=== PATIENT | male | born 1980 | race Caucasian/White ===

== ENCOUNTER 2016-11-11 07:56 | Inpatient (IN) | payer MEDICAID ==
[~2016-11-11] VITALS: Ht 180.3 cm; Wt 85.9 kg
--- NOTE | 2016-11-11 08:39 | NUR ---
DR. TILLMAN AT BEDSIDE FOR MSE.
[2016-11-11 09:11] LABS: CALCIUM 8.9 mg/dL (8.5-10.1); CARBON DIOXIDE 23.8 mmol/L (21-32); CREATININE SERUM 2.2 mg/dL (0.7-1.3); POTASSIUM SERUM 3.4 mmol/L (3.5-5.1)
[2016-11-11 09:15] LABS: BILIRUBIN TOTAL 0.79 mg/dL (0.20-1.00); TOTAL PROTEIN, SERUM 7.6 g/dL (6.4-8.2)
[2016-11-11 09:25] LABS: PLATELET COUNT 260 x10^3mcL (130-400); RED CELL DISTRIBUTION WIDTH 13.3 % (11.5-14.5)
--- NOTE | 2016-11-11 09:38 | NUR ---
PT BACK FROM CT WITHOUT INCIDENCE.
[2016-11-11 09:39] LABS: BAND NEUTROPHIL 22 % (0-10); BASOPHIL 0 % (0-2); MONOCYTE 1 % (0-7); SEGMENTED NEUTROPHILS 73 % (37-75)
[2016-11-11 09:40] LABS: PLATELET MORPHOLOGY PLATELETS NORMAL; rbc morphology (normal/abnorm) ABNORMAL (NORMAL)
--- NOTE | 2016-11-11 09:50 | NUR ---
CLINDAMYCIN 600MG IV COMPLETED TO RIGHT AC IV WITH NO ADVERSE REACTIONS. PT LAYING IN ED GURNEY IN POSITION OF COMFORT, A/O X4, REPORTS FEELING BETTER SINCE ARRIVAL TO ED, RESPS EVEN AND UNLABORED, SKIN WARM/DRY TO TOUCH, NO S/S OF DISTRESS NOTED. COMFORT MEASURES IN PLACE, CALL LIGHT WITHIN REACH.
--- NOTE | 2016-11-11 10:35 | NUR ---
STUDENT AT BEDSIDE FOR EVAL.
--- NOTE | 2016-11-11 10:48 | NUR ---
REPORT CALLED TO CATIA RN, PT TO BE ADMITTED TO TELE ROOM 256B.
--- NOTE | 2016-11-11 11:30 | NUR ---
RECEIVED PT FROM ED, ARRIVED ALONE, AAOx4, LUNG SOUNDS CTA O2 SAT 95% ROOM AIR; AMBULATORY WITH NO APPARENT WEAKNESS OR DIFFICULTIES; 18G TO THE RAC; TELE BOX #[address] WITH OCCASIONAL PVC; PT HAD A BM UPON ARRIVAL TO THE UNIT, HE STATES THAT HE HAS HAD LOOSE STOOL x3 DAYS; HAS EDEMA, REDNESS, AND DRY WOUNDS TO FOZIA HANDS (RIGHT INDEX FINGER AND LEFT THUMB); PHOTOGRAPHS TAKEN AND LEONEL INTO CHART;PT URINATES WITHOUT DIFFICULTY. CALM AND COOPERATIVE WITH STAFF. DR. WILKES SEEN AND ASSESSED PT UPON ARRIVAL TO MED SURG UNIT. CALL LIGHT WITHIN REACH. ENCOURAGED TO CALL FOR ASSISTANCE WHEN NEEDED. WILL CONTINUE TO MONITOR
[2016-11-11 12:23] VITALS: BP 104/65
[2016-11-11 13:04] LABS: MAGNESIUM 2.3 mg/dL (1.8-2.4); PHOSPHOROUS 1.8 mg/dL (2.5-4.9)
[2016-11-11 13:05] LABS: CHOLESTEROL/HDL RATIO 4.3
[2016-11-11 13:15] LABS: FREE T4 1.51 ng/dL (0.76-1.46); FREE THYROXINE INDEX 2.7 ug/dL (1.4-4.5); T4(THYROXINE) 7.6 ug/dL (4.7-13.3)
[2016-11-11 13:50] LABS: T3 TOTAL 0.71 ng/mL
--- NOTE | 2016-11-11 14:42 | NUR ---
PT SITTING UP IN BED EATING. REMINDED TO USE CALL LIGHT WHEN HE URINATES SO THAT WE CAN COLLECT SAMPLE TO SEND TO LAB. PRN MEDICATION GIVEN FOR PAIN IN HAND. IV ABX INFUSING. CALL LIGHT WITHIN REACH. WILL CONTINUE TO MONITOR
[2016-11-11 16:16] LABS: UA SPECIFIC GRAVITY >=1.030 (1.005-1.035); microscopic required? YES; urine erythrocyte 3+ (NEGATIVE)
[2016-11-11 16:24] LABS: AMPHETAMINE QUAL UR POSITIVE (NEG <=1000)
--- NOTE | 2016-11-11 16:31 | NUR ---
PT TEMP 103.1 WITH HR OF 124. DR. WILKES AWARE, WHO WILL ORDER A 1L BOLUS. COOLING MEASURES STARTED. WILL CONTINUE TO MONITOR
[2016-11-11 17:12] VITALS: BP 99/52
--- NOTE | 2016-11-11 18:52 | NUR ---
PT RESTING IN BED EYES CLOSED. NO APPARENT SIGNS OF ACUTE DISTRESS NOTED AT THIS TIME. IV INFUSING WELL. CALL LIGHT WITHIN REACH. WILL CONTINUE TO MONITOR
--- NOTE | 2016-11-11 19:09 | NUR ---
PT TEMP WAS 104. COOLING MEASURE INITIATED. ICE PACK TO UNDERARMS, BEHIND NECK AND BETWEEN LEGS, COOL WASH CLOTH TO FORHEAD. TYLENOL GIVEN. DR. WANG WAS NOTIFIED AND AWARE. WILLL ENDORSE TO NEXT SHIFT TO KEEP HER UP TO DATE. WILL CONTINUE TO MONITOR
--- NOTE | 2016-11-11 19:10 | NUR ---
AAO X 4. SPEECH CLEAR AND APPROPRIATE. BREATHING EVEN AND UNLABORED ON ROOM AIR. LUNG SOUNDS CLEAR. HOB ELEVATED 30 DEG. UPPER SIDE RAILS IN RAISED POSITION. SINUS TACHYCARDIC ON TELE, HR 125/MIN. RECEIVED TYLENOL PO FROM DAY SHIFT NURSE AT 1906H FOR FEVER. IVF OF NS AT 120ML/HR.
[2016-11-11 21:19] VITALS: BP 95/51
--- NOTE | 2016-11-11 21:31 | NUR ---
TEMP 101.3F. COOLING MEASURES IN PLACE.
[2016-11-11 22:25] VITALS: BP 101/55
--- NOTE | 2016-11-11 22:39 | NUR ---
TEMP 99.7. INSTRUCTED NO EATING OR DRINKING AFTER MIDNIGHT FOR US ABDOMEN IN AM
--- NOTE | 2016-11-11 23:41 | NUR ---
EYES CLOSED, BREATHING EVEN AND UNLABORED ON ROOM AIR. HOB KEPT ELEVATED 30 DEG. UPPER SIDE RAILS KEPT RAISED, BED IN LOWEST POSITION. CALL LIGHT WITHIN EASY REACH. HEART RATE 101/MIN. NO MOANING OR GRIMACING NOTED.
--- NOTE | 2016-11-12 04:15 | NUR ---
BP 92/45, W[place] 112. INFORMED DR. GOLD VIA [place].
--- NOTE | 2016-11-12 04:17 | NUR ---
VOIDED 600ML TEA COLORED URINE.
--- NOTE | 2016-11-12 04:58 | NUR ---
REMINDED NO EATING OR DRINKING UNTIL US OF ABDOMEN DONE. AMBULATED TO RESTROOM.
[2016-11-12 05:14] VITALS: BP 100/51
--- NOTE | 2016-11-12 06:05 | NUR ---
AMBULATED TO RESTROOM, STATED PASSED STOOL. KEPT HANDS ELEVATED ON PILLOWS. IVF OF NS AT 120ML/HR. BREATHING EVEN AND UNLABORED. AFEBRILE.
--- NOTE | 2016-11-12 07:20 | NUR ---
AAO X4.DENIES ANY PAIN/DISCOMFORT AT THE MOMENT.LUNGS CLEAR.ON SR/ST ON THE MONITOR.IVF NS GOING AT 120 ML/HR INFUSING WELL.BUE WITH REDNESS AND CELLULITIS.ELEVATED BUE WITH PILLOW.CALL LIGHT WITHIN REACH.INSTRUCTED TO CALL FOR ANY PAIN/DISCOMFORT.WILL CONTINUE TO MONITOR PT.
--- NOTE | 2016-11-12 07:21 | NUR ---
US ABD DONE. AAO X 4. BREATHING EVEN AND UNLABORED. ENDORSED TO NURSE ESTHER
--- NOTE | 2016-11-12 08:30 | NUR ---
AND MEDICINE TEAM AT BEDSIDE.INFORMED PT ABOUT THE PLAN OF CARE.CONSULTED THE ORTHO DOCTOR ABOUT HIS SWELLING ON BILAT HANDS.
[2016-11-12 10:16] VITALS: BP 91/45
[2016-11-12 10:53] LABS: PLATELET COUNT 198 x10^3mcL (130-400); RED CELL DISTRIBUTION WIDTH 13.4 % (11.5-14.5)
[2016-11-12 11:40] LABS: BAND NEUTROPHIL 25 % (0-10); MONOCYTE 3 % (0-7); SEGMENTED NEUTROPHILS 58 % (37-75)
[2016-11-12 11:42] LABS: rbc morphology (normal/abnorm) NORMAL (NORMAL)
[2016-11-12 11:46] LABS: PLATELET MORPHOLOGY PLATELETS NORMAL
[2016-11-12 13:06] LABS: CALCIUM 7.6 mg/dL (8.5-10.1); CARBON DIOXIDE 26.5 mmol/L (21-32); CREATININE SERUM 1.6 mg/dL (0.7-1.3); MAGNESIUM 2.1 mg/dL (1.8-2.4); PHOSPHOROUS 1.9 mg/dL (2.5-4.9); POTASSIUM SERUM 3.3 mmol/L (3.5-5.1)
--- NOTE | 2016-11-12 14:54 | NUR ---
DEBRIDEMENT STARTED AT BEDSIDE BY .
--- NOTE | 2016-11-12 15:46 | NUR ---
C/O NAUSEA, MEDICATED ORDERED. DR. BOYD IN WITH PATIENT.
[2016-11-12 18:00] VITALS: BP 113/56
--- NOTE | 2016-11-12 18:28 | NUR ---
NO SIGNIFICANT CHANGE NOTED.WILL ENDORSE TO NEXT SHIFT.
--- NOTE | 2016-11-12 20:14 | NUR ---
PT IS AAO X4. PT IS A MED/SURG PT. 120 ML/HR NS RUNNING IN RAC. BOWEL SOUNDS ACTIVE. LUNG SOUNDS CTA ON RA. BED IS IN LOWEST POSITION WITH CALL LIGHT WITHIN REACH. WILL CONTINUE TO MONITOR.
[2016-11-12 21:42] VITALS: BP 122/73
--- NOTE | 2016-11-13 00:42 | NUR ---
PT'S RIGHT INDEX FINGER DRESSING FELL OFF. REBANDAGED AND TAPED.
--- NOTE | 2016-11-13 04:20 | NUR ---
RAC IV LEAKING. INSERTED IV INTO LAC. 22G RUNNING WELL. WILL CONTINUE TO ASSESS.
[2016-11-13 06:10] LABS: BASOPHIL % 0.1 % (0-2); PLATELET COUNT 205 x10^3mcL (130-400); RED CELL DISTRIBUTION WIDTH 13.9 % (11.5-14.5)
[2016-11-13 06:26] VITALS: BP 98/57
[2016-11-13 06:41] LABS: CALCIUM 7.9 mg/dL (8.5-10.1); CARBON DIOXIDE 25.9 mmol/L (21-32); CHLORIDE SERUM 103 mmol/L (98-107); CREATININE SERUM 1.2 mg/dL (0.7-1.3); GFR1 > 60 mL/min; GLUCOSE SERUM 126 mg/dL (74-106); PHOSPHOROUS 2.3 mg/dL (2.5-4.9); POTASSIUM SERUM 3.1 mmol/L (3.5-5.1); SODIUM SERUM 136 mmol/L (136-145)
--- NOTE | 2016-11-13 07:07 | NUR ---
NURSING CO-SIGN THE DOCUMENTATION ENTERED BY THE RN HAS BEEN REVIEWED. REVIEWED/CO-SIGNED BY: Glo Ga DOCUMENTATION DONE BY: VANESSA PERSON
--- NOTE | 2016-11-13 07:25 | NUR ---
AAO X4.PT CLAIMS TO BE COMFORTABLE AT THE MOMENT.LUNGS CLEAR.PT NON-TELE.IVF NS GOING AT 120 ML/HR INFUSING WELL.BUE WITH DRESSING CDI.CALL LIGHT WITHIN REACH. INSTRUCTED TO CALL FOR ANY PAIN/DISCOMFORT.WILL CONTINUE TO MONITOR.
--- NOTE | 2016-11-13 08:30 | NUR ---
AND MEDICINE TEAM AT BEDSIDE.INFORMED PT ABOUT THE PLAN OF CARE.WILL STAY ONE MORE DAY FOR ANTIBIOTICS.
--- NOTE | 2016-11-13 09:30 | NUR ---
CAME TO CHANGE DRESSING ON BUE.
[2016-11-13 10:10] VITALS: BP 108/61
--- NOTE | 2016-11-13 10:19 | NUR ---
ECHOCARDIOGRAM COMPLETED
--- NOTE | 2016-11-13 15:20 | NUR ---
Initial Nutrition Assessment 256-B DAMIEN LAWTON 36 Y/O M Dx: Cellulitis to Hands PMHx: IV drug use, pyloric stenosis at young age, perforated ulcer (2008) PSHx: PUD repair (a few years ago) Labs: K 3.1 L, BG 126 H, BUN 20 H, Phosphorous 2.3 L, H/H 10.4/31 L; (11/11) ALB 3 L, AST 110 H, ALT 85 H, A1C 5.3 Meds: Colace, KCl NS IV, lactinex, protonix, NS IV, zofran Current Diet Order: Regular PO Intakes: (11/13) B: 80% Ht: 71", 5' 11". Wt: 189 lb, 86 kg. BMI: 26.4 kg/m2 (Overweight) IBW: 175 lb, 78 kg. %IBW: 110%. UBW: Unable to obtain Age: 36 Y/O M Food Allergies: None Skin: BUE with redness, cellulitis, s/p debridement. Cr 21. Note no boatswains mate note in chart. Edema: None GI: Active bowel sounds. Last BM 11/12. Nursing Trigger: Nausea, Vomiting, Diarrhea >3 days. Pt found with bilateral cellulitis of hands with possible L thumb flexor tenosynovitis per doctor's notes. 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 Pt was seen resting in bed, appears to be annoyed, reported good appetite, declined further RD interview questions due to wanting to sleep. RD acknowledged. RD to obtain food preferences at F/U visit. Estimated Nutritional Needs Based CBW 189 lb, 86 kg Energy: 4151-0895 kcal/day (25-30 kcal/kg for Maintenance) Protein: 86-103 gm/day (1-1.2 gm/kg for Wound Healing) Fluids: 2580 ml/day (30 ml/kg for Maintenance) or per doctor Nutrition Diagnosis Increase protein needs related to altered skin integrity as evidenced by cellulitis to hands, s/p I&D debridement Intervention 1. Continue Regular diet per doctor. 2. Recommend Theragran daily. Monitor/Evaluate Goal: PO intakes to meet >80% of estimated needs with tolerance Monitor: PO intakes, tolerance to diet, labs, skin integrity, GI function, weights F/U in 7 days as LOW risk (11/20)
--- NOTE | 2016-11-13 15:20 | NUR ---
1. Continue Regular diet per doctor. 2. Recommend Theragran daily.
[2016-11-13 17:54] VITALS: BP 106/67
--- NOTE | 2016-11-13 18:19 | NUR ---
NO SIGNIFICANT CHANGE NOTED.WILL ENDORSE TO NEXT SHIFT.
--- NOTE | 2016-11-13 19:30 | NUR ---
PT IS AAOX4. CTA ON RA. BOWEL SOUNDS ACTIVE. NO DISTRESS NOTED. PT WISHES TO TAKE A SHOWER, SO ASSISTED IN COVERING UP BANDAGES SO HE COULD DO SO. PT CURRENTLY IN SHOWER, WILL CONTINUE TO MONITOR.
[2016-11-13 21:00] VITALS: BP 129/88
--- NOTE | 2016-11-13 21:40 | NUR ---
CHANGED DRESSING, APPLIED BACTROBAN. PT OLERATED PROCEDURE WELL.
--- NOTE | 2016-11-14 03:34 | NUR ---
PT IS SLEEPING IN BED WITH NO SIGNS OF ACUTE DISTRESS NOTED. BED IN LOWEST POSITION AND CALL LIGHT WITHIN REACH. WILL CONTINUE TO MONITOR.
--- NOTE | 2016-11-14 05:52 | NUR ---
PT IS SLEEPING COMFORTABLY IN BED. ALL NEEDS HAVE BEEN MET. NO ACUTE DISTRESS NOTED. CALL LIGHT WITHIN REACH. WILL ENDORSE TO MORNING SHIFT.
[2016-11-14 06:12] LABS: BASOPHIL % 0.5 % (0-2); PLATELET COUNT 251 x10^3mcL (130-400)
[2016-11-14 06:43] LABS: CALCIUM 7.9 mg/dL (8.5-10.1); CARBON DIOXIDE 28.2 mmol/L (21-32); CHLORIDE SERUM 108 mmol/L (98-107); GFR1 > 60 mL/min; GLUCOSE SERUM 96 mg/dL (74-106); MAGNESIUM 1.7 mg/dL (1.8-2.4); PHOSPHOROUS 3.1 mg/dL (2.5-4.9); POTASSIUM SERUM 3.9 mmol/L (3.5-5.1); SODIUM SERUM 144 mmol/L (136-145)
[2016-11-14 07:00] VITALS: BP 116/65
--- NOTE | 2016-11-14 07:30 | NUR ---
PATIENT IS IN BED APPEARS TO BE SLEEPING AROUSED EASILY TO NAME. ALERT AND ORIENTED. DRESSING OFF RIGHT HAND FINGER AND FALLING OFF LEFT HAND. TREATMENT TO RT HAND FINGER AND LEFT HAND DONE ORDERED. IVF INFUSING WELL AT THIS TIME, SITE LEFT A/C. PATIENT VOIDING WELL USING URINAL PRN. LUNGS CLEAR ON ROOM AIR. ABD SOFT BOWEL SOUNDS ACTIVE LBM THIS AM PER PATIENT. AMBULATES AD PAPITO. SMALL DRY PINK AREA NOTED ON THE TIP OF PATIENT'S NOSE, NOT OPEN AND PER PATIENT HE IS APPLYING CREAM TO IT. WILL CONTINUE TO MONITOR.
--- NOTE | 2016-11-14 08:30 | NUR ---
DR ORTEGA AND MEDICAL TEAM INTO SEE PATIENT AND DISCUSS PLAN OF CARE.
--- NOTE | 2016-11-14 09:24 | NUR ---
PATIENT'S PLAN OF CARE WAS DISCUSSED AND REVIEWED WITH FIELD ADJUSTER:olaf kim
--- NOTE | 2016-11-14 15:59 | NUR ---
PATIENT IS IN BED APPEARS TO BE SLEEPING. AROUSED EASILY TO NAME. DENIES ANY PAIN OR DISCOMFORT AT THIS TIME. BANDAGES ON BOTH HANDS REMAIN C/D/I. PATIENT CONTINUES TO REMOVE HANDS OFF PILLOWS, PATIENT REMINDED ON THE NEED TO ELEVATE THEM. NO ACUTE DISTRESS NOTED. WILL CONTINUE TO MONITOR.
[2016-11-14 16:10] VITALS: BP 120/80
--- NOTE | 2016-11-14 17:24 | NUR ---
PATIENT IS IN BED, C/O 8/10 ON THE PAIN SCALE OF BILAT HAND PAIN. MEDICATED WITH NORCO PO ORDERED. WILL CONTINUE TO MONITOR.
--- NOTE | 2016-11-14 18:23 | NUR ---
PATIENT IS IN BED APPEARS TO BE RESTING WELL. APPETITE HAS BEEN GOOD. MEDICATED FOR HAND PAIN PRN ORDERED WITH NORCO. DRESSING ON HANDS REMAIN C/D/I. DRY PINK AREA ON TIP OF THE NOSE REMAINS NOTED. PATIENT APPLIED VASELINE CREAM TO NOSE. NO ACUTE DISTRESS NOTED.
--- NOTE | 2016-11-14 19:11 | NUR ---
I HAVE REVIEWED THE DATA COLLECTION BY JHONY (NAME):EFREN SHAW ENTERED ON (DATE/TIME):11/14 FROM 7A-7P I CONCUR WITH THE DATA AND ANY EXCEPTIONS OR COMMENTS ARE LISTED BELOW:
--- NOTE | 2016-11-14 19:27 | NUR ---
RECEIVED PT FROM PREVIOUS SHIFT. PT A/OX4. DENIES CHEST PAIN, DENIES SOB ON RA. IV PATENT AND INFUSING NS AT 10ML/HR TO LAC WITH NO S/S OF INFILTRATION. DRESSING TO BILATERAL HANDS CDI AND ELEVATED ON PILLOW. SCAB TO NOSE GELY. CALL LIGHT WITHIN REACH, BED IN LOW POSITION. WILL CONITNUE TO MONITOR.
--- NOTE | 2016-11-14 21:01 | NUR ---
DRESSING CHANGE PROVIDED AT THIS TIME PER WOUND CARE ORDERS. PT TOLERATED WELL. NEW DRESSING CDI. WILL CONTINUE TO MONITOR.
[2016-11-14 22:28] VITALS: BP 134/80
--- NOTE | 2016-11-15 02:39 | NUR ---
PT RESTING AT THIS TIME IN NO ACUTE DISTRESS. RR EVEN AND UNLABORED. IV PATENT. CALL LIGHT WITHIN REACH AND BED IN LOW POSITION. WILL CONTINUE TO MONITOR
[2016-11-15 06:22] LABS: BASOPHIL % 0.5 % (0-2); PLATELET COUNT 322 x10^3mcL (130-400); RED CELL DISTRIBUTION WIDTH 14.4 % (11.5-14.5)
[2016-11-15 06:24] VITALS: BP 124/72
[2016-11-15 06:35] LABS: MAGNESIUM 1.6 mg/dL (1.8-2.4)
--- NOTE | 2016-11-15 07:15 | NUR ---
RECEIVED Pt. AAOX4. RESPIRATIONS EVEN AND UNLABORED. DENIES PAIN/DISCOMFORT. NO DISTRESS NOTED. DSG IN PLACE AT RIGHT 2ND DIGIT AND LEFT 1ST DIGIT CDI, Pt. INSTRUCTED TO KEEP BILATERAL HANDS ELEVATED WITH PILLOWS AND Pt. VERBALIZED UNDERSTANDING. IVF RUNNING TO IV AT LEFT AC PATENT AND INTACT. BED LOW/LOCKED. CALL LIGHT IN REACH.
--- NOTE | 2016-11-15 08:15 | NUR ---
MADE ROUNDS WITH DR. ORTEGA AND MEDICINE TEAM, CONTINUE TO ARRANGE PLACEMENT AND POSSIBLE DISCHARGE TODAY AND AGREED WITH PLAN OF CARE.
[2016-11-15 10:00] VITALS: BP 145/90
--- NOTE | 2016-11-15 11:00 | NUR ---
PICTURES TAKEN AND WOUND CARE PROVIDED TO OPEN AREA TO RIGHT INDEX FINGER, LEFT PALM AND LEFT THUMB AND Pt. TOLERATED PROCEDURE WELL. WOUND CARE INSTRUCTIONS GIVEN AND Pt. VERBALIZED UNDERSTANDING. WOUND CARE SUPPLIES ALSO PROVIDED.
--- NOTE | 2016-11-15 12:02 | NUR ---
Pt. C/O BILATERAL HAND PAIN 8/10 SCALE, NORCO 10/325 GIVEN PER EMAR, WILL CONTINUE TO MONITOR.
--- NOTE | 2016-11-15 14:00 | NUR ---
Pt. VERBALIZED SOME RELIEF POST NORCO 08/31 AT THIS TIME.
[2016-11-15] MEDS ORDERED: CLINDAMYCIN HC300 MG PO (14:32)
[2016-11-15] MEDS ORDERED: LAC PO (14:33)
[2016-11-15] MEDS ORDERED: IBUPROFEN800 MG PO (14:36)
[2016-11-15 15:32] VITALS: BP 145/90
--- NOTE | 2016-11-15 16:30 | NUR ---
Pt. AAOX4. RESPIRATIONS EVEN AND UNLABORED. DENIES PAIN/DISCOMFORT AT THIS TIME. NO DISTRESS NOTED ALL RX, DISCHARGE AND WOUND CARE INSTRUCTIONS GIVEN TO Pt. AND VERBALIZED UNDERSTANDING. Pt. ALSO INSTRUCTED TO GO TO FOLLOW UP APPOINTMENT WITH [facility], Pt. VERBALIZED UNDERSTANDING. DSG BILATERAL HANDS CDI. WOUND CARE SUPPLIES PROVIDED. IV AT LEFT AC REMOVED WITH CATH INTACT. Pt. REPORTED GOING TO [facility]RI[facility]DS HOU[facility] POST DISCARGE AND LEFT WITH ALL BELONGINGS.
== END 2016-11-15 16:50 | disposition home or self-care (01) | DRG 710 ==
LOC: ED 07:56 → MU 10:25 → DU 10:25 → MU 11-12 09:51
PROVIDERS: Emergency Medicine; Family Medicine; ADMIT Family Medicine
PROC: 0JBJ0ZZ Excision of Right Hand Subcutaneous Tissue and Fascia, Open Approach (ICD-10-PCS; principal; 2016-11-12)
PROC: 0HBGXZZ Excision of Left Hand Skin, External Approach (ICD-10-PCS; principal; 2016-11-12)
DX: A41.9 Sepsis, unspecified organism (principal); N17.0 Acute kidney failure with tubular necrosis; E43 Unspecified severe protein-calorie malnutrition; E87.1 Hypo-osmolality and hyponatremia; E83.39 Other disorders of phosphorus metabolism; E83.42 Hypomagnesemia; I08.1 Rheumatic disorders of both mitral and tricuspid valves; R65.20 Severe sepsis without septic shock; L03.114 Cellulitis of left upper limb; L03.113 Cellulitis of right upper limb; B95.62 Methicillin resistant Staphylococcus aureus infection as the cause of diseases classified elsewhere; E87.6 Hypokalemia; E78.5 Hyperlipidemia, unspecified; D64.9 Anemia, unspecified; F15.129 Other stimulant abuse with intoxication, unspecified; F12.10 Cannabis abuse, uncomplicated; F10.10 Alcohol abuse, uncomplicated; Z68.26 Body mass index [BMI] 26.0-26.9, adult; Z87.11 Personal history of peptic ulcer disease
CPT/HCPCS: 80307; 83880; 84439; 90715; C9113; G0480; J0696; J1885; J1956; J2001; J2270; J2405; J2543; J3480; J3490; J7030; Q0092

== ENCOUNTER 2016-12-07 08:54 | Emergency (ER) | payer MEDICAID ==
[~2016-12-07] VITALS: Ht 180.3 cm; Wt 83.0 kg
[~2016-12-07 08:54] MED LIST: CLINDAMYCIN HC300 MG PO; IBUPROFEN800 MG PO; LAC PO
[2016-12-07 08:59] VITALS: BP 156/83
== END 2016-12-07 09:38 | disposition home or self-care (01) ==
LOC: ED 08:54
DX: A49.02 Methicillin resistant Staphylococcus aureus infection, unspecified site (principal)

== ENCOUNTER 2017-02-28 13:20 | Emergency (ER) | payer OTHER ==
[~2017-02-28] VITALS: Ht 180.3 cm; Wt 74.8 kg
[2017-02-28 14:20] VITALS: BP 129/78
[2017-02-28 14:36] LABS: UA SPECIFIC GRAVITY >=1.030 (1.005-1.035); microscopic required? YES; urine erythrocyte 2+ (NEGATIVE)
== END 2017-02-28 14:20 | disposition home or self-care (01) ==
LOC: ED 13:20
PROVIDERS: Emergency Medicine
DX: N34.2 Other urethritis (principal)
CPT/HCPCS: 87491; 87591; J0696

== ENCOUNTER 2017-05-10 06:45 | Emergency (ER) | payer OTHER ==
[2017-05-10 07:30] VITALS: BP 153/98
== END 2017-05-10 07:30 | disposition home or self-care (01) ==
LOC: ED 06:45
DX: K08.89 Other specified disorders of teeth and supporting structures (principal)

== ENCOUNTER 2017-05-14 08:42 | Emergency (ER) | payer OTHER ==
[2017-05-14 09:45] LABS: BASOPHIL % 0.4 % (0-2); PLATELET COUNT 340 x10^3mcL (130-400)
[2017-05-14 09:49] LABS: CALCIUM 8.8 mg/dL (8.5-10.1); CARBON DIOXIDE 26.6 mmol/L (21-32); CHLORIDE SERUM 101 mmol/L (98-107); GFR1 > 60 mL/min; GLUCOSE SERUM 91 mg/dL (74-106); POTASSIUM SERUM 3.5 mmol/L (3.5-5.1); SODIUM SERUM 135 mmol/L (136-145)
[2017-05-14 09:54] LABS: ALKALINE PHOSPHATASE 112 U/L (46-116); ALT/SGPT 45 U/L (16-63); AST/SGOT 25 U/L (15-37); BILIRUBIN TOTAL 0.3 mg/dL (0.20-1.00); TOTAL PROTEIN, SERUM 6.4 g/dL (6.4-8.2)
[2017-05-14 10:00] LABS: ALBUMIN 2.3 g/dL (3.4-5.0)
[2017-05-14 11:53] LABS: AMPHETAMINE QUAL UR POSITIVE (NEG <=1000)
[2017-05-14 13:02] VITALS: BP 179/98
== END 2017-05-14 12:40 | disposition short-term general hospital (02) ==
LOC: ED 08:42
PROVIDERS: Emergency Medicine
DX: K12.2 Cellulitis and abscess of mouth (principal)
CPT/HCPCS: 83880; J2405; J2543; J3010; Q9967

== ENCOUNTER 2017-08-12 20:52 | Emergency (ER) | payer OTHER ==
[~2017-08-12] VITALS: Ht 180.3 cm; Wt 77.1 kg
[2017-08-12 21:01] VITALS: Ht 180.3 cm; Wt 77.1 kg
[2017-08-12 21:49] VITALS: BP 124/84
== END 2017-08-12 21:49 | disposition other institution (70) ==
LOC: ED 20:52
DX: Z02.89 Encounter for other administrative examinations (principal)

== ENCOUNTER 2017-11-10 09:29 | Emergency (ER) | payer OTHER ==
[~2017-11-10] VITALS: Ht 182.9 cm; Wt 81.6 kg
[2017-11-10 09:37] VITALS: Ht 182.9 cm; Wt 81.6 kg
[2017-11-10 10:40] VITALS: BP 137/98
[2017-11-12 12:44] LABS: RAPID PLASMA REAGIN Non Reactive (Non Reactive)
== END 2017-11-10 11:10 | disposition home or self-care (01) ==
LOC: ED 09:29
PROVIDERS: Specialist
DX: R30.0 Dysuria (principal)
CPT/HCPCS: 87491; 87591; J0696; J2001

== ENCOUNTER 2018-08-14 03:14 | Inpatient (IN) | payer OTHER ==
[~2018-08-14] VITALS: Ht 182.9 cm; Wt 79.1 kg
[2018-08-14 03:20] VITALS: Ht 182.9 cm; Wt 79.1 kg
[2018-08-14 04:02] LABS: BASOPHIL % 0.2 % (0-2); PLATELET COUNT 283 x10^3mcL (130-400); RED CELL DISTRIBUTION WIDTH 14.3 % (11.5-14.5)
[2018-08-14 04:21] LABS: CHLORIDE SERUM 100 mmol/L (98-107); CREATININE SERUM 0.7 mg/dL (0.7-1.3); GFR1 > 60 mL/min; GLUCOSE SERUM 124 mg/dL (74-106); SODIUM SERUM 135 mmol/L (136-145)
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
[2018-08-14 04:39] LABS: ALKALINE PHOSPHATASE 81 U/L (46-116); ALT/SGPT 93 U/L (16-63); AST/SGOT 313 U/L (15-37); BILIRUBIN TOTAL 0.7 mg/dL (0.20-1.00); FREE T4 1.37 ng/dL (0.76-1.46); LIPASE 81 IU/L (73-393); TOTAL PROTEIN, SERUM 6.9 g/dL (6.4-8.2)
[2018-08-14 04:42] LABS: ALBUMIN 3.3 g/dL (3.4-5.0)
[2018-08-14 06:15] LABS: MAGNESIUM 1.9 mg/dL (1.8-2.4)
--- NOTE | 2018-08-14 06:15 | NUR ---
PT ARRIVED TO FLOOR VIA [facility] ACCOMPANIED BY RN AND TRANSPORT. PT APPEARED TO BE IN STABLE CONDITION AND AMBULATED FROM [facility] TO BED, STEADY GAIT. PT IS A/O X3, DENIES LAWLER, DIZZINESS AT THIS TIME, FEVER NOTED. PT DENIES PAIN AT THIS TIME. VITALS: BP, 99/55, MAP 78, HR 112 T 100.6 , O2 96% ON RA AND RR 18. TELE MONITOR #13 PLACED, SHOWING ST; PT DENIES CHEST PAIN OR SOB AT THIS TIME. MULTIPLE SCRATCHES AND ABRASIONS NOTED TO BLE AND BUE. IV X2 TO LUE, LAC AND LFA. ALL SAFETY MEASURES MAINTAINED. CALL LIGHT AND PERSONAL ITEMS IN REACH. WILL ENDORSE CARE TO AM NURSE.
[2018-08-14 06:16] LABS: CHOLESTEROL/HDL RATIO 1.9
--- NOTE | 2018-08-14 07:40 | NUR ---
RECEIVED PATIENT RESTING IN BED COMFORTABLY A/O X4, CLEAR SPEECH, NO NEURO DEFICITS NOTED. TELE # [address], DENIES CHEST PAIN. BREATHING EVEN UNLABBROED ON RA, DENIES SOB, NO DISTRESS NOTED. PATIENT CAME IN FOR RT HAND CELLULITITES, RT HAND NOTED WITH REDNESS AND SWELLING AND MULTIPLE DRY SCATTERED SCABS/ABRASIONS TO BUE/BLE, COMBINATION SAW OPERATOR. IV TO LAC AND LFA INTACT AND PATENT FREE FROM REDNESS AND INFILTRATION. PATIENT IS CALM WITH CARE. INSTRUCTED TO CALL FOR ASSISTANCE IF NEEDED. SAFETY PRECAUTIONS IN PLACE, CALL LIGHT WITHIN REACH BED IN LOW POSITION.
[2018-08-14 09:28] VITALS: BP 99/58
[2018-08-14 10:02] VITALS: BP 92/44
[2018-08-14 10:35] VITALS: BP 105/57
--- NOTE | 2018-08-14 10:35 | NUR ---
SCOTTY HAIR ASSISTANT AT BEDSIDE TO SPEAK WITH AND ASSESS PATIENT. POC REVIEWED: PATIENT WILL BE GIVEN ABX FOR HIS CELLULITIS TO HIS HAND, NO FRACTURE. PATIENT INSTRUCTED TO PROVIDE URINE SAMPLE TO R/O INFECTION. PATIENT VERBALIZED UNDERSTANDING. ALL QUESTIONS AND CONCERNS ADDRESSED.
--- NOTE | 2018-08-14 10:50 | NUR ---
PATIENT C/O GENERALIZED BODY ACHES 01/31, MEDICATED WITH NORCO PO (SEE eMAR). PATIENT ALSO GIVEN INFLUENZA VACCINE TO LEFT ARM, TOLERATED WELL, NO ADVERSE REACTION NOTED. ALL NEEDS ATTENDED TO. SAFETY PRECAUTIONS IN PLACE.
--- NOTE | 2018-08-14 12:33 | NUR ---
PATIENT SEEN RESTING IN BED COMFORTABLY WITH EYES CLOSED, BREATHING EVEN UNLABBORED ON RA, NO DISTRESS NOTED. SAFETY PRECAUTIONS IN PLACE. WILL MONITOR.
[2018-08-14 14:22] LABS: UA SPECIFIC GRAVITY 1.025 (1.005-1.035); microscopic required? YES; urine erythrocyte 2+ (NEGATIVE)
--- NOTE | 2018-08-14 14:25 | NUR ---
PATIENT C/O BODY ACHES AND HEADACHE 08/31, MEDICATED WITH TYLENOL 650 MG PO (SEE eMAR). PATIENT REFUSED LIBRIUM PO, PATIENT INFORMED OF REASON FOR MEDICATION BUT STILL REFUSED. WILL CALL AND NOTIFY SCOTTY NON CATEGORICAL PRESCHOOL TEACHER. ALL NEEDS ATTENDED TO. SAFETY PRECAUTIONS IN PLACE.
[2018-08-14 14:33] LABS: AMPHETAMINE QUAL UR POSITIVE (See below)
--- NOTE | 2018-08-14 14:45 | NUR ---
AT [phone]: CALLED SCOTTY NIEVES AND INFORMED HER PATIENT REFUSED LIBRIUM PO (SEE eMAR) AND THAT PATIENT IS REQUESTING TO SPEAK WITH HER. TRANSFERED PHONE CALL TO PATIENTS ROOM, PATIENT SPOKE WITH SCOTTY BOTTLE WASHER MACHINE ALL QUESTIONS AND CONCERNS ADDRESED. PATIENT INFORMED SCOTTY HE IS NOT GOING TO STAY OVER NIGHT, PATIENT VERBALIZED UNDERSTANDING REGARDING RISKS OF LEAVING AGAINST MEDICAL ADVICE. PATIENT WILL NOTIFY STAFF WHEN HE WILL BE LEAVING. ALL QUESTIONS AND CONCERNS ADDRESSED. SAFETY PRECAUTIONS IN PLACE.
[2018-08-14 14:53] VITALS: BP 105/64
--- NOTE | 2018-08-14 17:12 | NUR ---
AT 1645: PATIENT SIGNED AGAINST MEDICAL ADVICE FORM, STATED DOES NOT WANT TO STAY OVER NIGHT. SPOKE WITH SCOTTY WHOLESALE DIAMOND BROKER AND IS AWARE OF RISKS OF LEAVING AMA. TELE MONITOR REMOVED, ID BANDS REMOVED, IV TO LAC AND LFA REMOVED CATH INTACT. AT 1712: PATIENT IN STABLE CONDITION, ASSISTED DOWN TO LOBBY ACCOMPANIED BY NURSE AID. ALL PERSONAL BELONGINGS SENT HOME WITH PATIENT AT THIS TIME.
== END 2018-08-14 17:12 | disposition left against medical advice (07) | DRG 720 ==
LOC: ED 03:14 → DU 05:03
PROVIDERS: Emergency Medicine; ADMIT Internal Medicine
DX: A41.9 Sepsis, unspecified organism (principal); M62.82 Rhabdomyolysis; E44.0 Moderate protein-calorie malnutrition; F10.129 Alcohol abuse with intoxication, unspecified; D50.9 Iron deficiency anemia, unspecified; E86.0 Dehydration; F15.10 Other stimulant abuse, uncomplicated; L03.113 Cellulitis of right upper limb; T43.625A Adverse effect of amphetamines, initial encounter; Z53.21 Procedure and treatment not carried out due to patient leaving prior to being seen by health care provider; N39.0 Urinary tract infection, site not specified; Y90.0 Blood alcohol level of less than 20 mg/100 ml; R74.0 Nonspecific elevation of levels of transaminase and lactic acid dehydrogenase [LDH]; Z79.1 Long term (current) use of non-steroidal anti-inflammatories (NSAID); Y92.098 Other place in other non-institutional residence as the place of occurrence of the external cause; Z72.89 Other problems related to lifestyle; Z68.22 Body mass index [BMI] 22.0-22.9, adult; Z23 Encounter for immunization
CPT/HCPCS: 84439; 87804; 90658; 90715; G0480; J0295; J1885; J2543; J3010; J3370; J7030; Q0092

== ENCOUNTER 2018-08-16 19:52 | Emergency (ER) | payer OTHER ==
[~2018-08-16] VITALS: Ht 182.9 cm; Wt 79.4 kg
[2018-08-16 20:28] VITALS: BP 113/69
== END 2018-08-16 23:56 | disposition home or self-care (01) ==
LOC: ED 19:52
DX: L03.114 Cellulitis of left upper limb (principal); L03.113 Cellulitis of right upper limb

== ENCOUNTER 2018-08-21 07:02 | Emergency (ER) | payer OTHER ==
[~2018-08-21] VITALS: Ht 182.9 cm; Wt 79.8 kg
[2018-08-21 07:12] VITALS: BP 122/84
== END 2018-08-21 07:32 | disposition home or self-care (01) ==
LOC: ED 07:02
DX: L03.011 Cellulitis of right finger (principal); Z76.0 Encounter for issue of repeat prescription; Z00.00 Encounter for general adult medical examination without abnormal findings

== ENCOUNTER 2018-09-06 13:07 | Inpatient (IN) | payer OTHER ==
[~2018-09-06] VITALS: Ht 182.9 cm; Wt 71.2 kg
[2018-09-06 18:36] LABS: BASOPHIL % 0.6 % (0-2)
[2018-09-06 18:42] LABS: CALCIUM 8.7 mg/dL (8.5-10.1); CARBON DIOXIDE 29.9 mmol/L (21-32); CHLORIDE SERUM 101 mmol/L (98-107); CREATININE SERUM 0.7 mg/dL (0.7-1.3); GFR1 > 60 mL/min; GLUCOSE SERUM 82 mg/dL (74-106); PLATELET COUNT 463 x10^3mcL (130-400); POTASSIUM SERUM 4.2 mmol/L (3.5-5.1); RED CELL DISTRIBUTION WIDTH 15.4 % (11.5-14.5); SODIUM SERUM 137 mmol/L (136-145)
[2018-09-06 18:47] LABS: ALBUMIN 3.4 g/dL (3.4-5.0); ALKALINE PHOSPHATASE 160 U/L (46-116); ALT/SGPT 22 U/L (16-63); AST/SGOT 29 U/L (15-37); BILIRUBIN TOTAL 0.7 mg/dL (0.20-1.00); TOTAL PROTEIN, SERUM 7.8 g/dL (6.4-8.2)
[2018-09-06 22:41] VITALS: BP 140/90
[2018-09-07 05:28] VITALS: BP 124/78
[2018-09-07 05:58] LABS: BASOPHIL % 0.8 % (0-2); RED CELL DISTRIBUTION WIDTH 13.9 % (11.5-14.5)
[2018-09-07 05:59] LABS: PLATELET COUNT 485 x10^3mcL (130-400)
[2018-09-07 06:12] LABS: CALCIUM 8.1 mg/dL (8.5-10.1); CARBON DIOXIDE 28.1 mmol/L (21-32); CHLORIDE SERUM 105 mmol/L (98-107); CREATININE SERUM 0.6 mg/dL (0.7-1.3); GFR1 > 60 mL/min; GLUCOSE SERUM 95 mg/dL (74-106); SODIUM SERUM 138 mmol/L (136-145)
[2018-09-07 09:04] VITALS: BP 136/93
[2018-09-07 18:18] VITALS: BP 120/72
[2018-09-07 20:37] VITALS: BP 137/84
[2018-09-07 21:02] LABS: microscopic required? YES; urine erythrocyte TRACE (NEGATIVE)
[2018-09-07 21:52] LABS: AMPHETAMINE QUAL UR POSITIVE (See below)
[2018-09-08 05:45] VITALS: BP 130/85
[2018-09-08 06:25] LABS: CALCIUM 8.2 mg/dL (8.5-10.1); CARBON DIOXIDE 29.4 mmol/L (21-32); CHLORIDE SERUM 103 mmol/L (98-107); CREATININE SERUM 0.6 mg/dL (0.7-1.3); GFR1 > 60 mL/min; GLUCOSE SERUM 102 mg/dL (74-106); MAGNESIUM 1.9 mg/dL (1.8-2.4); PHOSPHOROUS 2.5 mg/dL (2.5-4.9); POTASSIUM SERUM 4.1 mmol/L (3.5-5.1); SODIUM SERUM 137 mmol/L (136-145)
[2018-09-08 06:46] LABS: BASOPHIL % 0.9 % (0-2)
[2018-09-08 06:55] LABS: PLATELET COUNT 454 x10^3mcL (130-400); RED CELL DISTRIBUTION WIDTH 13.8 % (11.5-14.5)
[2018-09-08 09:18] VITALS: BP 132/85
[2018-09-08 16:41] VITALS: BP 113/78
[2018-09-08 20:00] VITALS: BP 131/86
[2018-09-09 05:40] VITALS: BP 127/84
[2018-09-09 06:18] LABS: BASOPHIL % 0.8 % (0-2)
[2018-09-09 06:20] LABS: CALCIUM 8.4 mg/dL (8.5-10.1); CARBON DIOXIDE 30.2 mmol/L (21-32); CHLORIDE SERUM 103 mmol/L (98-107); CREATININE SERUM 0.6 mg/dL (0.7-1.3); GFR1 > 60 mL/min; GLUCOSE SERUM 108 mg/dL (74-106); POTASSIUM SERUM 4.2 mmol/L (3.5-5.1); SODIUM SERUM 139 mmol/L (136-145)
[2018-09-09 06:38] LABS: PLATELET COUNT 426 x10^3mcL (130-400); RED CELL DISTRIBUTION WIDTH 15.3 % (11.5-14.5)
[2018-09-09 08:30] VITALS: BP 126/85
[2018-09-09] MEDS ORDERED: KEFLEX500 M1 PO (09:45)
[2018-09-09 10:55] VITALS: BP 126/85
== END 2018-09-09 12:09 | disposition home or self-care (01) | DRG 351 ==
LOC: ED 13:07 → MU 19:39
PROVIDERS: Emergency Medicine; ADMIT General Practice
DX: M65.841 Other synovitis and tenosynovitis, right hand (principal); N17.0 Acute kidney failure with tubular necrosis; L03.113 Cellulitis of right upper limb; E78.00 Pure hypercholesterolemia, unspecified; B19.10 Unspecified viral hepatitis B without hepatic coma; Z68.21 Body mass index [BMI] 21.0-21.9, adult; Y93.89 Activity, other specified; Y92.89 Other specified places as the place of occurrence of the external cause; Z71.51 Drug abuse counseling and surveillance of drug abuser
CPT/HCPCS: J0295; J2270; J3490; J7030; Q0092

== ENCOUNTER 2018-11-30 19:15 | Emergency (ER) | payer SELFPAY ==
[~2018-11-30] VITALS: Ht 182.9 cm; Wt 81.6 kg
[~2018-11-30 19:15] MED LIST changes: +KEFLEX500 M1 PO
[2018-11-30 19:22] VITALS: Ht 182.9 cm; Wt 81.6 kg
[2018-11-30 20:42] LABS: BASOPHIL % 0.4 % (0-2); PLATELET COUNT 348 x10^3mcL (130-400); RED CELL DISTRIBUTION WIDTH 14.7 % (11.5-14.5)
[2018-11-30 20:51] LABS: CALCIUM 8.3 mg/dL (8.5-10.1); CARBON DIOXIDE 30.8 mmol/L (21-32); CHLORIDE SERUM 113 mmol/L (98-107); CREATININE SERUM 0.9 mg/dL (0.7-1.3); GFR1 > 60 mL/min; GLUCOSE SERUM 100 mg/dL (74-106); SODIUM SERUM 151 mmol/L (136-145)
[2018-11-30 20:55] LABS: ALBUMIN 3.5 g/dL (3.4-5.0); ALKALINE PHOSPHATASE 90 U/L (46-116); ALT/SGPT 28 U/L (16-63); AST/SGOT 23 U/L (15-37); BILIRUBIN TOTAL 0.4 mg/dL (0.20-1.00); TOTAL PROTEIN, SERUM 6.4 g/dL (6.4-8.2)
[2018-12-01 06:06] LABS: AMPHETAMINE QUAL UR POSITIVE (See below)
[2018-12-01 07:08] VITALS: BP 142/90
== END 2018-12-01 07:08 | disposition home or self-care (01) ==
LOC: ED 19:15
PROVIDERS: Emergency Medicine
DX: F10.129 Alcohol abuse with intoxication, unspecified (principal)
CPT/HCPCS: 82962; G0480; J7030

== ENCOUNTER 2019-01-19 08:11 | Emergency (ER) | payer MEDICAID ==
[~2019-01-19] VITALS: Ht 182.9 cm; Wt 69.9 kg
[2019-01-19 08:21] VITALS: BP 134/96; Ht 182.9 cm; Wt 69.9 kg
[2019-01-19 08:56] LABS: microscopic required? NO
[2019-01-19 09:05] LABS: UA SPECIFIC GRAVITY 1.025 (1.005-1.035); urine erythrocyte NEGATIVE (NEGATIVE)
[2019-01-19 10:52] LABS: BASOPHIL % 0.4 % (0-2); PLATELET COUNT 327 x10^3mcL (130-400); RED CELL DISTRIBUTION WIDTH 13.2 % (11.5-14.5)
[2019-01-19 11:17] LABS: CALCIUM 8.2 mg/dL (8.5-10.1); CHLORIDE SERUM 104 mmol/L (98-107); CREATININE SERUM 0.8 mg/dL (0.7-1.3); GFR1 > 60 mL/min; GLUCOSE SERUM 93 mg/dL (74-106); POTASSIUM SERUM 3.9 mmol/L (3.5-5.1); SODIUM SERUM 139 mmol/L (136-145)
[2019-01-19 11:22] LABS: ALBUMIN 2.9 g/dL (3.4-5.0); ALKALINE PHOSPHATASE 99 U/L (46-116); ALT/SGPT 21 U/L (16-63); AST/SGOT 19 U/L (15-37); BILIRUBIN TOTAL 0.2 mg/dL (0.20-1.00)
== END 2019-01-19 10:51 | disposition home or self-care (01) ==
LOC: ED 08:11
PROVIDERS: Emergency Medicine
DX: R53.1 Weakness (principal); R19.7 Diarrhea, unspecified; R36.9 Urethral discharge, unspecified
CPT/HCPCS: 36415; 87491; 87591; J0696

== ENCOUNTER 2019-07-30 08:24 | Emergency (ER) | payer SELFPAY ==
[~2019-07-30] VITALS: Ht 167.6 cm; Wt 79.4 kg
[2019-07-30 08:48] VITALS: BP 133/85; Ht 167.6 cm; Wt 79.4 kg
== END 2019-07-30 10:10 | disposition home or self-care (01) ==
LOC: ED 08:24
DX: M54.5 Low back pain (principal); M79.10 Myalgia, unspecified site
CPT/HCPCS: J1885

== ENCOUNTER 2019-10-31 13:32 | Emergency (ER) | payer SELFPAY ==
[~2019-10-31] VITALS: Ht 182.9 cm; Wt 74.4 kg
[2019-10-31 14:00] VITALS: Ht 182.9 cm; Wt 74.4 kg
[2019-10-31 15:33] VITALS: BP 138/72
== END 2019-10-31 15:33 | disposition home or self-care (01) ==
LOC: ED 13:32
DX: N34.2 Other urethritis (principal); Z81.1 Family history of alcohol abuse and dependence
CPT/HCPCS: 87491; 87591; J0696